=== PATIENT | female | born 1940 | race Caucasian/White ===

== ENCOUNTER 2021-05-30 18:45 | Emergency (ER) | payer MEDICARE, MEDICAID ==
[2021-05-30 22:05] VITALS: BP 150/117; PULSE 85
[2021-05-30 22:08] LABS: ANION GAP 11.9 mEq/L (7-13); CHLORIDE,CL 102 mmol/L (98-107); SODIUM,NA 143 mmol/L (136-145)
--- NOTE | 2021-05-30 22:35 | EDM.PDOC ---
ED HPI GENERAL MEDICAL PROBLEM - General Chief Complaint: Abdominal Pain Stated Complaint: ABD PAIN Time Seen by Provider: 05/30/21 22:55 Source of Information: Reports: Patient History Limitations: Reports: No Limitations - History of Present Illness INITIAL COMMENTS - FREE TEXT/NARRATIVE: Patient comes emergency department today with complaints of abdominal pain. This patient has had all over abdominal pain for the past week. She relates that she let herself get constipated and did not do anything about it. She did drink some castor oil and took some Dulcolax and had a small very painful hard bowel movement today. Although she continues to have generalized abdominal pain that is chronic cramping in nature. She has had some nausea without vomiting. No fever no chills. No chest pain or shortness of breath or difficulty breathing. No hematuria dysuria urinary frequency. Her stools are very hard in nature. She does have a history of diverticular disease as well as diverticulitis. She has been eating and drinking appropriately. No weakness dizziness lightheadedness palpitations. - Related Data Allergies Allergy/AdvReac Type Severity Reaction Status Date / Time Iodinated Contrast Media Allergy Swelling Verified 05/30/21 21:50 [Iodinated Contrast Media - Oral and] nickel Allergy Rash Verified 05/30/21 21:50 Home Meds: Home Meds Escitalopram [Lexapro] 10 mg PO DAILY 09/26/14 [History] LORazepam [Ativan] 1 mg PO Q6HR PRN 09/26/14 [History] Levothyroxine [Synthroid] 50 mcg PO ACBRK 09/26/14 [History] Simvastatin [Zocor] 20 mg PO BEDTIME 09/26/14 [History] Valsartan [Diovan] 320 mg PO DAILY 09/26/14 [History] traMADol [Ultram] 50 mg PO Q6HR PRN 09/26/14 [History] Aspirin [Low Dose Aspirin EC] 81 mg PO DAILY 09/27/14 [History] Cetirizine [ZyrTEC] 10 mg PO ASDIRECTED PRN 09/27/14 [History] Famotidine 40 mg PO BID 09/27/14 [History] Meclizine [Antivert] 50 mg PO Q8HR PRN 09/27/14 [History] Montelukast Sodium 10 mg PO BEDTIME 09/27/14 [History] Verapamil [Calan SR] 120 mg PO BEDTIME 09/27/14 [History] Verapamil [Calan SR] 180 mg PO BEDTIME 09/27/14 [History] Aclidinium [place] [Tudorza Pressair] 1 puff INH BID 08/03/15 [History] Albuterol [Proventil Neb Soln] 2.5 mg NEB DAILY 08/03/15 [History] Atropine/Diphenoxylate [Lomotil 0.025-2.5 MG] 1 tab PO QID PRN 08/03/15 [History] Clotrimazole/Betamethasone Dip [Lotrisone Cream] 15 gm TOP BID PRN 08/03/15 [History] Diclofenac Sodium [Voltaren 1% Gel] 100 gm TOP BID PRN 08/03/15 [History] Latanoprost [Xalatan 0.005% Ophth Soln] 1 drop EYEBOTH BEDTIME 08/03/15 [History] Albuterol [Ventolin HFA] 1 inh INH ASDIRECTED PRN 12/31/16 [History] Budesonide [Pulmicort] 1 vial INH BID 12/31/16 [History] Fluconazole [Diflucan] 150 mg PO ASDIRECTED 12/31/16 [History] Formoterol [Perforomist] 1 vial INH BID 12/31/16 [History] Furosemide 20 mg PO DAILY 12/31/16 [History] Pramipexole [Mirapex] 0.25 mg PO BEDTIME 12/31/16 [History] guaiFENesin [Mucinex] 600 mg PO BID 12/31/16 [History] Fluticasone Propionate [Flonase Allergy Relief] 2 sprays NASBOTH BID 01/01/17 [History] Past Medical History HEENT History: Reports: Impaired Vision Cardiovascular History: Reports: High Cholesterol, Hypertension Respiratory History: Reports: Asthma, Pneumonia, Recurrent Genitourinary History: Reports: None [employer] TE[employer]IAN History: Reports: Musculoskeletal History: Reports: Arthritis, Other (See Below) Other Musculoskeletal History: degenerative joint disease Neurological History: Reports: None Endocrine/Metabolic History: Reports: Diabetes, Type II - Infectious Disease History Infectious Disease History: Reports: Chicken Pox - Past Surgical History HEENT Surgical History: Reports: None GI Surgical History: Reports: Cholecystectomy Female Surgical History: Reports: None Musculoskeletal Surgical History: Reports: Knee Replacement, Other (See Below) Other Musculoskeletal Surgeries/Procedures:: tendon repain Social & Family History - Tobacco Use Tobacco Use Status *Q: Never Tobacco User Second Hand Smoke Exposure: No - Caffeine Use Caffeine Use: Reports: None - Recreational Drug Use Recreational Drug Use: No ED ROS GENERAL - Review of Systems Review Of Systems: Comprehensive ROS is negative, except as noted in HPI. ED EXAM, GI/ABD - Physical Exam Exam: See Below Exam Limited By: No Limitations General Appearance: Alert, WD/WN, No Apparent Distress, Obese Respiratory/Chest: No Respiratory Distress, Lungs Clear, Chest Non-Tender Cardiovascular: Normal Peripheral Pulses, Regular Rate, Rhythm GI/Abdominal Exam: Normal Bowel Sounds, Soft, Non-Tender, No Distention. No: Guarding, Rigid, Rebound, Tender Back Exam: Normal Inspection Extremities: Normal Inspection, Normal Range of Motion, No Pedal Edema, Normal Capillary Refill Neurological: Alert, Oriented, Normal Cognition, No Motor/Sensory Deficits Psychiatric: Normal Affect, Normal Mood Skin Exam: Warm, Dry, Intact, Normal Color, No Rash Lymphatic: No Adenopathy Course - Vital Signs Last Recorded V/S: Last Vital Signs Temp 97.5 F 05/30/21 21:50 Pulse 85 05/30/21 21:50 Resp 20 05/30/21 21:50 BP 150/117 H 05/30/21 21:50 Pulse Ox 96 05/30/21 21:50 - Orders/Labs/Meds Labs: Laboratory Tests 05/30/21 05/30/21 05/30/21 Range/Units 21:42 21:42 21:42 WBC 11.4 H (5.0-10.0) 10^3/uL RBC 6.21 H (4.2-5.4) 10^6/uL Hgb 16.5 H (12.0-16.0) g/dL Hct 51.3 H (37.0-47.0) % MCV 82.6 (80-100) fL MCH 26.6 L (27.0-34.0) pg MCHC 32.2 L (33.0-35.0) g/dL Plt Count 407 (150-450) 10^3/uL Neut % (Auto) 68.1 (42.2-75.2) % Lymph % (Auto) 22.1 (20.5-50.1) % [place] % (Auto) 8.5 H (2-8) % Eos % (Auto) 1.1 (1.0-3.0) % Baso % (Auto) 0.2 (0.0-1.0) % Sodium 143 (136-145) mmol/L Potassium 3.9 (3.5-5.1) mmol/L Chloride 102 (98-107) mmol/L Carbon Dioxide 33 H (21-32) mmol/L Anion Gap 11.9 (7-13) mEq/L BUN 8 (7-18) mg/dL Creatinine 0.79 (0.55-1.02) mg/dL Est Cr Clr Drug Dosing TNP Estimated GFR (MDRD) > 60 BUN/Creatinine Ratio 10.1 (No establ ref range) Glucose 119 H (70-99) mg/dL Lactic Acid 1.2 (0.4-2.0) mmol/L Calcium 9.9 (8.5-10.1) mg/dL Total Bilirubin 1.0 (0.2-1.0) mg/dL AST 14 L (15-37) U/L ALT 22 (14-59) U/L Alkaline Phosphatase 31 L (46-116) U/L C-Reactive Protein 2.6 H (0.0-0.9) mg/dL Total Protein 7.9 (6.4-8.2) g/dL Albumin 3.9 (3.4-5.0) g/dL Globulin 4.0 Albumin/Globulin Ratio 1.0 Lipase 59 L (73-393) U/L Urine Color (YELLOW) Urine Appearance (CLEAR) Urine pH (5.0-9.0) Ur Specific [place] (1.005-1.030) Urine Protein (NEGATIVE) Urine Glucose (UA) (NEGATIVE) Urine Ketones (NEGATIVE) Urine Occult Blood (NEGATIVE) Urine Nitrite (NEGATIVE) Urine Bilirubin (NEGATIVE) Urine Urobilinogen (0.2-1.0) mg/dL Ur Leukocyte Esterase (NEGATIVE) U Hyaline Cast (Auto) Urine RBC (0-5) /HPF Urine WBC (0-5/HPF) /HPF Ur Epithelial Cells (NOT SEEN) /HPF Urine Bacteria (0-FEW/HPF) /HPF Urine Mucus (NOT SEEN) /LPF 05/30/21 Range/Units 22:40 WBC (5.0-10.0) 10^3/uL RBC (4.2-5.4) 10^6/uL Hgb (12.0-16.0) g/dL Hct (37.0-47.0) % MCV (80-100) fL MCH (27.0-34.0) pg MCHC (33.0-35.0) g/dL Plt Count (150-450) 10^3/uL Neut % (Auto) (42.2-75.2) % Lymph % (Auto) (20.5-50.1) % [place] % (Auto) (2-8) % Eos % (Auto) (1.0-3.0) % Baso % (Auto) (0.0-1.0) % Sodium (136-145) mmol/L Potassium (3.5-5.1) mmol/L Chloride (98-107) mmol/L Carbon Dioxide (21-32) mmol/L Anion Gap (7-13) mEq/L BUN (7-18) mg/dL Creatinine (0.55-1.02) mg/dL Est Cr Clr Drug Dosing Estimated GFR (MDRD) BUN/Creatinine Ratio (No establ ref range) Glucose (70-99) mg/dL Lactic Acid (0.4-2.0) mmol/L Calcium (8.5-10.1) mg/dL Total Bilirubin (0.2-1.0) mg/dL AST (15-37) U/L ALT (14-59) U/L Alkaline Phosphatase (46-116) U/L C-Reactive Protein (0.0-0.9) mg/dL Total Protein (6.4-8.2) g/dL Albumin (3.4-5.0) g/dL Globulin Albumin/Globulin Ratio Lipase (73-393) U/L Urine Color Yellow (YELLOW) Urine Appearance Slightly cloudy (CLEAR) Urine pH 6.0 (5.0-9.0) Ur Specific [place] 1.020 (1.005-1.030) Urine Protein Negative (NEGATIVE) Urine Glucose (UA) Negative (NEGATIVE) Urine Ketones Negative (NEGATIVE) Urine Occult Blood Trace-intact H (NEGATIVE) Urine Nitrite Negative (NEGATIVE) Urine Bilirubin Negative (NEGATIVE) Urine Urobilinogen 0.2 (0.2-1.0) mg/dL Ur Leukocyte Esterase Negative (NEGATIVE) U Hyaline Cast (Auto) Moderate Urine RBC 5-10 H (0-5) /HPF Urine WBC 0-5 (0-5/HPF) /HPF Ur Epithelial Cells Rare (NOT SEEN) /HPF Urine Bacteria Rare (0-FEW/HPF) /HPF Urine Mucus Few H (NOT SEEN) /LPF Meds: Medications Discontinued Medications Generic Name Dose Route Start Last Admin Trade Name Freq PRN Reason Stop Dose Admin Lactulose 20 gm 05/30/21 23:40 05/30/21 23:46 Lactulose Soln 10 Gm/15 Ml 30 Ml Ud Cup PO 05/30/21 23:41 20 gm ONETIME ONE Administration Ondansetron HCl 4 mg 05/30/21 22:55 05/30/21 23:16 Ondansetron 4 Mg Tab.Dis PO 05/30/21 22:56 4 mg ONETIME ONE Administration Polyethylene Glycol 51 gm 05/30/21 22:54 05/30/21 23:16 Polyethylene Glycol 3350 Powder 17 Gm Packet PO 05/30/21 22:55 Not Given ONETIME ONE - Radiology Interpretation Free Text/Narrative:: [facility] Final Radiology Report Call: [phone] assistance Online chat: [email or web address] Name: MALORIE STEARNS Age: 81Years F Date: 05/30/2021 SSN: -- : 1940 Study: CR ABDOMEN 2V AP FLAT UPRIGHT Requesting Physician: JAMMIE MARTE Images: 3 Addl Studies: Provided Clinical History: abd pain constipation Contrast: Contrast Medium: Contrast Amount: Contrast Method: Page 1 of 2 PROCEDURE INFORMATION: Exam: XR Abdomen Exam date and time: 05/30/2021 9:47 PM Age: 81 years old Clinical indication: Constipation; Abdominal pain; Localized; Left lower quadrant (llq); Additional info: Abd pain constipation TECHNIQUE: Imaging protocol: XR of the abdomen. Views: 2 Views. Upright and supine views. Total images: 3 COMPARISON: CT Abdomen Pelvis wo Cont 05/11/2018 11:10 AM FINDINGS: Heart/Mediastinum: Heart size normal. Lungs: Granulomatous calcification in the medial right lung base. Gastrointestinal tract: Nonobstructive bowel gas pattern. There is a moderate amount of stool and gas distributed throughout the colon suggesting possible constipation. No evidence of pneumatosis or portal gas. Intraperitoneal space: No free air is evident. Organs: No evidence of organomegaly. Bones/joints: Osteopenia and moderate lumbar spondylosis. Moderate chronic enthesopathy in the pelvis and hips. Soft tissues: No gross soft tissue masses. IMPRESSION: Moderate colonic gas and stool suggesting constipation. - Re-Assessments/Exams Free Text/Narrative Re-Assessment/Exam: 05/30/21 22:33 X-ray of the abdomen with moderate colonic gas and stool suggesting constipation. Laboratory evaluation with a mild elevation of her BBC 11.4, hemoglobin 16.5 which is most likely due to dehydration. Platelet count 407. CMP with a CO2 of 33 a glucose of 119. Lactic acid is normal at 1.2. C-reactive protein minimally if at all elevated at 2.6. This really is the sequelae of constipation. Although the patient does have a history of diverticular disease and really on concern for diverticulitis at this time as her symptoms have much improved after having bowel movements with home therapy. Her exam of her abdomen is soft nontender nondistended there is clearly no point tenderness anywhere throughout the abdomen. She is quite comfortable after having bowel movements on her own at home. We do not have any MiraLAX currently in the hospital. She was given a dose of lactulose. Discharge directions as below are explained to the patient she was comfortable this plan and her questions were answered. If it anytime her pain gets much worse she develops a fever nausea vomiting she is to recheck she is understanding this and her questions are answered. 05/31/21 02:06 I did explain to the patient that she also had trace amounts of blood in her urine. Her exam is nonconcerning for a kidney stone as her pain improved with a bowel movement at home. She needs to have this rechecked in the clinic to ensure that this is resolved. Departure - Departure Time of Disposition: 23:40 Disposition: Home, Self-Care 01 Clinical Impression: Hematuria Qualifiers: Hematuria type: unspecified type Qualified Code(s): R31.9 - Hematuria, unspecified Constipation Qualifiers: Constipation type: unspecified constipation type Qualified Code(s): K59.00 - Constipation, unspecified - Discharge Information Instructions: Constipation, Adult Referrals: Bryn Hernandez MD [Primary Care Provider] - Forms: ED Department Discharge Additional Instructions: Increase your fluid intake. Need a recheck urine at the clinic due to the small amount of blood in your urine. Miralax, 2 capfuls in the morning with a large glass of water. Increase every 2 days by 1 capful until easy smooth bowel movements. Return to the ED if new or worsening symptoms especially pain fever chills nausea vomiting. Recheck in the clinic in the next 4-6 days if not improving sooner if worse. Also need a repeat urine. Sepsis Event Note (ED) - Evaluation Sepsis Screening Result: No Definite Risk - Focused Exam Vital Signs: Vital Signs Temp Pulse Resp BP Pulse Ox 05/30/21 21:50 97.5 F 85 20 150/117 H 96
[2021-05-30] MEDS ORDERED: Polyethylene Glycol 3350 Powder 17 GM Packet PO ONE (22:54)
[2021-05-30] MEDS ORDERED: Ondansetron 4 MG Tab.DIS PO ONE (22:55)
[2021-05-30] MEDS ORDERED: Lactulose Soln 10 GM/15 ML 30 ML UD Cup PO ONE (23:40)
== END 2021-05-30 23:48 | disposition home or self-care (01) ==
LOC: DL.ED 18:45
DX: K59.00 Constipation, unspecified (principal); R31.9 Hematuria, unspecified; E78.00 Pure hypercholesterolemia, unspecified; I10 Essential (primary) hypertension; J45.909 Unspecified asthma, uncomplicated; E11.9 Type 2 diabetes mellitus without complications; Z91.041 Radiographic dye allergy status; Z91.048 Other nonmedicinal substance allergy status; Z79.82 Long term (current) use of aspirin; Z79.899 Other long term (current) drug therapy
CPT/HCPCS: 36415; 74019; 80053; 81001; 83605; 83690; 85025; 86140; 99284; A9270

== ENCOUNTER 2023-01-19 06:58 | Emergency (ER) | payer MEDICARE, MEDICAID ==
[2023-01-19] MEDS ORDERED: Aspirin 81 MG Tab.Chew PO ONE (07:17)
[2023-01-19] MEDS ORDERED: Nitroglycerin 0.4 MG Tab.SL SL ONE (07:17)
[2023-01-19] MEDS ORDERED: Sodium Chloride 0.9% 10 ML Syringe FLUSH PRN (07:21)
[2023-01-19 07:30] LABS: BASOPHILS PERCENT AUTO 0.2 % (0.0-1.0); EOSINOPHILS PERCENT AUTO 1.6 % (1.0-3.0); HEMATOCRIT 43.1 % (37.0-47.0); HEMOGLOBIN 13.7 g/dL (12.0-16.0); LYMPHOCYTES PERCENT AUTO 18.8 % (20.5-50.1); MEAN CORPUSCULAR HEMOGLOBIN 26.7 pg (27.0-34.0); MEAN CORPUSCULAR HGB CONC 31.8 g/dL (33.0-35.0); MONOCYTES PERCENT AUTO 7.9 % (2-8); NEUTROPHILS PERCENT AUTO 71.5 % (42.2-75.2); PLATELET COUNT,PLT 354 10^3/uL (150-450); RED BLOOD CELL COUNT 5.13 10^6/uL (4.2-5.4); WHITE BLOOD CELL COUNT,WBC 12.1 10^3/uL (5.0-10.0)
[2023-01-19 07:42] LABS: PROTHROMBIN TIME 9.9 SEC (9.0-12.0); PTT,PARTIAL THROMBOPLSTIN TIME 26.5 SEC (22.0-34.0)
[2023-01-19 07:47] LABS: ALBUMIN 3.4 g/dL (3.4-5.0); ANION GAP 7.9 mEq/L (7-13); BILIRUBIN TOTAL 0.7 mg/dL (0.2-1.0); BUN/CREATININE RATIO 19.4 (No establ ref range); CALCIUM 9.3 mg/dL (8.5-10.1); CREATININE 0.67 mg/dL (0.55-1.02); EST CRCL DRUG DOSING (CG) 49.44 mL/min; POTASSIUM,K 3.9 mmol/L (3.5-5.1); PROTEIN TOTAL,TP 6.7 g/dL (6.4-8.2)
[2023-01-19] MEDS ORDERED: Ondansetron 4 MG/2 ML SDV IV ONE (07:51)
[2023-01-19] MEDS ORDERED: GI Cocktail Oral Solution 30 ML PO ONE (07:51)
[2023-01-19] MEDS ORDERED: Famotidine 20 MG/2 ML SDV IVPUSH ONE (07:51)
[2023-01-19 08:17] VITALS: BP 153/78; PULSE 79
[2023-01-19] MEDS ORDERED: Sucralfate Suspension 1 GM/10 ML Cup PO ONE (10:17)
== END 2023-01-19 10:33 | disposition home or self-care (01) ==
LOC: DL.ED 06:58
DX: K20.90 Esophagitis, unspecified without bleeding (principal); E78.00 Pure hypercholesterolemia, unspecified; I10 Essential (primary) hypertension; J45.909 Unspecified asthma, uncomplicated; M19.90 Unspecified osteoarthritis, unspecified site; E11.9 Type 2 diabetes mellitus without complications; Z91.041 Radiographic dye allergy status; Z91.048 Other nonmedicinal substance allergy status; Z79.899 Other long term (current) drug therapy; Z79.82 Long term (current) use of aspirin
CPT/HCPCS: 36415; 71045; 80053; 82150; 83690; 83880; 84484; 85025; 85610; 85730; 93005; 93010; 96374; 96375; 99284; 99285-25; A9270-GY; J2405; J3490

== ENCOUNTER → 2023-02-19 | Day surgery (SDC) | payer MEDICARE, MEDICAID ==
[~2023-02-19] MED LIST: Dextrose 5%-0.45% NaCl 1,000 ML IV SCH; Midazolam 1 MG/ML 2 ML SDV IV ONE; Midazolam 1 MG/ML 2 ML SDV ONE; Sodium Chloride 0.9% 10 ML Syringe FLUSH PRN; Sodium Chloride 0.9% 10 ML Syringe FLUSH SCH; fentaNYL 100 MCG/2 ML SDV IV ONE; fentaNYL 100 MCG/2 ML SDV ONE
[2023-02-19 09:49] VITALS: BP 191/77; PULSE 75
== END | disposition home or self-care (01) ==
LOC: DL.ENDO 06:52
PROVIDERS: ATTEND Internal Medicine Gastroenterology
DX: K29.40 Chronic atrophic gastritis without bleeding (principal); K31.89 Other diseases of stomach and duodenum; R13.10 Dysphagia, unspecified; Q39.6 Congenital diverticulum of esophagus; E66.09 Other obesity due to excess calories; E11.9 Type 2 diabetes mellitus without complications; E78.5 Hyperlipidemia, unspecified; I10 Essential (primary) hypertension; E03.9 Hypothyroidism, unspecified; M54.50 Low back pain, unspecified; R60.1 Generalized edema; Z90.49 Acquired absence of other specified parts of digestive tract; Z98.890 Other specified postprocedural states; Z88.8 Allergy status to other drugs, medicaments and biological substances; Z91.041 Radiographic dye allergy status; Z68.41 Body mass index [BMI] 40.0-44.9, adult
CPT/HCPCS: 87077; 88305; J2250; J3010; J7042

== ENCOUNTER 2023-12-30 05:46 | Emergency (ER) | payer MEDICARE, MEDICAID ==
[2023-12-30 06:14] VITALS: BP 179/84; PULSE 80
[2023-12-30] MEDS: Lidocaine 1% with EPINEPHrine 1:100,000 20 ML MDV INJECT ONE (06:32)
== END 2023-12-30 06:59 | disposition home or self-care (01) ==
LOC: DL.ED 05:46
DX: S01.81XA Laceration without foreign body of other part of head, initial encounter (principal); I10 Essential (primary) hypertension; E78.00 Pure hypercholesterolemia, unspecified; J44.89 Other specified chronic obstructive pulmonary disease; K21.9 Gastro-esophageal reflux disease without esophagitis; E11.9 Type 2 diabetes mellitus without complications; Z91.041 Radiographic dye allergy status; Z79.82 Long term (current) use of aspirin; Z91.048 Other nonmedicinal substance allergy status; Z79.51 Long term (current) use of inhaled steroids; Z79.899 Other long term (current) drug therapy; Z90.49 Acquired absence of other specified parts of digestive tract; Z86.16 Personal history of COVID-19; W01.198A Fall on same level from slipping, tripping and stumbling with subsequent striking against other object, initial encounter
CPT/HCPCS: 12014; 99282; 99283; J3490